=== PATIENT | male | born 1945 ===

== ENCOUNTER → 2020-04-08 06:13 | Outpatient (CLI) | payer OTHER ==
[~2020-04-08 06:13] MED LIST: ASPIRIN EC81 MG PO; CELEBREX200MG PO; GRALISE600 MG PO; LOSARTAN POTASS50 MG PO; NORVASC10 MG PO; SIMVASTATIN5 MG PO
== END | disposition home or self-care (01) ==
LOC: LAB 06:13
PROVIDERS: ATTEND Orthopaedic Surgery
DX: D64.89 Other specified anemias (principal); E88.89 Other specified metabolic disorders; D68.8 Other specified coagulation defects; N39.0 Urinary tract infection, site not specified; Z22.322 Carrier or suspected carrier of Methicillin resistant Staphylococcus aureus; I49.8 Other specified cardiac arrhythmias; I10 Essential (primary) hypertension; Z76.89 Persons encountering health services in other specified circumstances

== ENCOUNTER → 2020-04-11 11:54 | Outpatient (CLI) | payer OTHER ==
[~2020-04-11 11:54] MED LIST changes: +MILLIPRED5 MG PO
== END | disposition home or self-care (01) ==
LOC: LAB 11:54
PROVIDERS: ATTEND Orthopaedic Surgery
DX: D69.49 Other primary thrombocytopenia (principal)

== ENCOUNTER 2020-04-11 12:33 | Inpatient (IN) | payer OTHER ==
[~2020-04-11] VITALS: Ht 172.7 cm; Wt 74.8 kg
[~2020-04-11 12:33] MED LIST changes: -MILLIPRED5 MG PO
[2020-04-17] MEDS ORDERED: MILLIPRED5 MG PO (08:35)
== END 2020-04-24 17:14 | DRG 470 ==
LOC: EDSTATUS 04-17 07:15 → ADM 04-17 07:15 → O/R 04-22 07:00 → SURH 04-22 08:20 → O/R 04-22 08:20 → SURH 04-22 18:22
PROVIDERS: ADMIT Orthopaedic Surgery; ATTEND Orthopaedic Surgery
PROC: 0SRC0J9 Replacement of Right Knee Joint with Synthetic Substitute, Cemented, Open Approach (ICD-10-PCS; principal; 2020-04-22 07:00)
DX: M17.11 Unilateral primary osteoarthritis, right knee (principal); D69.6 Thrombocytopenia, unspecified; M85.661 Other cyst of bone, right lower leg

== ENCOUNTER → 2020-05-23 | Outpatient (CLI) | payer OTHER ==
[~2020-05-23] MED LIST changes: +MILLIPRED5 MG PO
== END | disposition home or self-care (01) ==
LOC: RAD 09:50
PROVIDERS: ATTEND Orthopaedic Surgery
DX: G56.21 Lesion of ulnar nerve, right upper limb (principal)

== ENCOUNTER 2020-06-25 08:22 | Outpatient (CLI) | payer OTHER | END 2020-06-25 08:28 | disposition home or self-care (01) | LOC: MRI 08:22 | PROVIDERS: ATTEND Orthopaedic Surgery | DX: G56.21 Lesion of ulnar nerve, right upper limb (principal); M19.021 Primary osteoarthritis, right elbow | CPT/HCPCS: 73221 ==

== ENCOUNTER 2020-07-15 05:00 | Day surgery (SDC) | payer OTHER | END 2020-07-15 12:45 | disposition home or self-care (01) | LOC: CIR.AMB 05:00 | PROVIDERS: ATTEND Orthopaedic Surgery | DX: G56.21 Lesion of ulnar nerve, right upper limb (principal); Z20.828 Contact with and (suspected) exposure to other viral communicable diseases ==